=== PATIENT | female | born 1995 | race Two or more races ===

== ENCOUNTER 2017-07-05 16:45 | Observation (INO) | payer MEDICAID, OTHER | END 2017-07-05 17:50 | disposition home or self-care (01) | DRG 566 | LOC: LDRP 16:45 | PROVIDERS: ADMIT Obstetrics & Gynecology; ATTEND Obstetrics & Gynecology | DX: O26.893 Other specified pregnancy related conditions, third trimester (principal); M54.9 Dorsalgia, unspecified; Z3A.30 30 weeks gestation of pregnancy; V89.2XXA Person injured in unspecified motor-vehicle accident, traffic, initial encounter; Y93.89 Activity, other specified; Y92.89 Other specified places as the place of occurrence of the external cause; Y99.8 Other external cause status | CPT/HCPCS: 59025; 76815; G0378 ==